=== PATIENT | female | born 1960 | race Two or more races ===

== ENCOUNTER → 2020-10-06 | Outpatient (CLI) | payer OTHER | END | disposition home or self-care (01) | LOC: CFH 08:00 | PROVIDERS: ATTEND Advanced Practice Midwife | DX: N63.14 Unspecified lump in the right breast, lower inner quadrant (principal); N63.13 Unspecified lump in the right breast, lower outer quadrant; N64.4 Mastodynia | CPT/HCPCS: 76641; 77062; 77066; G0279 ==

== ENCOUNTER 2020-10-19 06:56 | Outpatient (CLI) | payer OTHER ==
[2020-10-19] MEDS ORDERED: LIDOCAINE 1%-EPI 1:100K, 20ML ONE (07:45)
== END 2020-10-19 23:59 | disposition home or self-care (01) ==
LOC: CFH 06:56
PROVIDERS: ATTEND Advanced Practice Midwife
DX: N63.12 Unspecified lump in the right breast, upper inner quadrant (principal); N63.14 Unspecified lump in the right breast, lower inner quadrant; N63.13 Unspecified lump in the right breast, lower outer quadrant; N61.21 Granulomatous mastitis, right breast
CPT/HCPCS: 19083; 19084; 19285; 38505; 76942; 88305; 77065